=== PATIENT | female | born 1960 | race Caucasian/White ===

== ENCOUNTER 2018-11-16 17:09 | Emergency (ER) | payer BC ==
[~2018-11-16] VITALS: Ht 162.6 cm; Wt 65.8 kg
[2018-11-16] MEDS ORDERED: KERYDIN10 ML (17:32)
[2018-11-16] MEDS ORDERED: PERCOCET 5-3251 EACH PO (21:37)
[2018-11-16] MEDS ORDERED: PEPCID AC20 MG PO (21:37)
[2018-11-16] MEDS ORDERED: CELEBREX200MG PO (21:37)
[2018-11-16] MEDS ORDERED: ONDANSETRON ODT4 MG SL (21:37)
== END 2018-11-16 21:52 | disposition home or self-care (01) ==
LOC: ER 17:09
DX: S42.291A Other displaced fracture of upper end of right humerus, initial encounter for closed fracture (principal); S00.31XA Abrasion of nose, initial encounter; S80.211A Abrasion, right knee, initial encounter; M54.2 Cervicalgia; M62.838 Other muscle spasm; W01.198A Fall on same level from slipping, tripping and stumbling with subsequent striking against other object, initial encounter; Y93.89 Activity, other specified; Y92.59 Other trade areas as the place of occurrence of the external cause; Y99.8 Other external cause status